=== PATIENT | female | born 1960 | race Caucasian/White ===

== ENCOUNTER 2018-07-04 10:49 | Day surgery (SDC) | payer OTHER ==
[2018-07-04] MEDS ORDERED: MIDAZOLAM 1 MG/ML 2 ML INJ ×2 (13:38→17:19)
[2018-07-04] MEDS ORDERED: FENTAnyl 50 MCG/ML VIAL (13:38)
== END 2018-07-04 14:44 | disposition home or self-care (01) ==
LOC: GIL 10:49
DX: Z12.11 Encounter for screening for malignant neoplasm of colon (principal); D12.0 Benign neoplasm of cecum; K57.90 Diverticulosis of intestine, part unspecified, without perforation or abscess without bleeding; K64.8 Other hemorrhoids; I10 Essential (primary) hypertension
CPT/HCPCS: 45380; 88305